=== PATIENT | female | born 1950 | race Caucasian/White ===

== ENCOUNTER 2017-07-24 13:15 | Outpatient (CLI) | payer MEDICARE, OTHER ==
[2017-07-24 13:32] LABS: BASOPHILS % (AUTO) 0.8 %; EOSINOPHILS # (AUTO) 0.1 10^3/uL (0.0-0.7); EOSINOPHILS % (AUTO) 2.3 %; HCT - HEMATOCRIT 42.2 % (37.0-47.0); HGB - HEMOGLOBIN 14.2 g/dL (12.0-16.0); LYMPHOCYTES # (AUTO) 1.5 10^3/uL (1.5-3.5); LYMPHOCYTES % (AUTO) 28.3 %; MEAN CORPUSCULAR HEMOGLOBIN 29.4 pg (27.0-31.0); MEAN CORPUSCULAR HGB CONC 33.5 g/dL (32.0-36.0); MEAN CORPUSCULAR VOLUME 87.5 fL (81.0-99.0); MONOCYTES # (AUTO) 0.4 10^3/uL (0.0-1.0); MONOCYTES % (AUTO) 7.6 %; NEUTROPHILS # (AUTO) 3.3 10^3/uL (1.5-6.6); NUCLEATED RED BLOOD CELLS AUTO 0.1 /100WBC; RED BLOOD COUNT 4.82 10^6/uL (4.20-5.40); UNCORRECTED WHITE BLOOD COUNT 5.4 x10^3/uL; WHITE BLOOD COUNT 5.4 x10^3/uL (4.8-10.8)
[2017-07-24 13:44] LABS: ALBUMIN/GLOBULIN RATIO 1.5 (1.0-2.2); BILIRUBIN,TOTAL 0.8 mg/dL (0.2-1.0); BUN - BLOOD UREA NITROGEN 17 mg/dL (6-20); CALCIUM 9.7 mg/dL (8.5-10.3); CARBON DIOXIDE - CO2 27 mmol/L (21-32); CHLORIDE 106 mmol/L (101-111); CHOLESTEROL 245 mg/dL; GFR - MDRD 55 (>89); GLUCOSE 86 mg/dL (70-100); HDL CHOLESTEROL 62 mg/dL; LDL/HDL RATIO 2.7 (<4.4); POTASSIUM 4.2 mmol/L (3.5-5.0); SODIUM 141 mmol/L (135-145); TOTAL PROTEIN 7.1 g/dL (6.7-8.2); TRIGLYCERIDES 86 mg/dL; VLDL CHOLESTEROL 17 mg/dL
[2017-07-24 13:47] LABS: PLATELET ESTIMATE, MANUAL NORMAL (130-450,000) (NORMAL); PLATELET MORPHOLOGY NORMAL APPEARANCE (NORMAL)
== END 2017-07-24 13:16 | disposition home or self-care (01) ==
LOC: LAB.R 13:15
PROVIDERS: ATTEND Internal Medicine
DX: E78.5 Hyperlipidemia, unspecified (principal); E03.9 Hypothyroidism, unspecified; Z79.899 Other long term (current) drug therapy
CPT/HCPCS: 80053; 80061; 84443; 85025

== ENCOUNTER 2017-08-13 09:09 | Outpatient (CLI) | payer MEDICARE, OTHER ==
--- NOTE | 2017-08-14 13:13 | Mammography Report ---
DIGITAL SCREENING MAMMOGRAM: 08/13/2017 CLINICAL INDICATION: A 66-year-old nulliparous patient with family history of breast cancer for scre ening. COMPARISON: 03/2015, 03/2012. TECHNIQUE: Routine CC and MLO projections were obtained of the breasts as well as bilateral laterall y exaggerated craniocaudal views. FINDINGS: The breasts again demonstrate scattered fibroglandular densities bilaterally. In the left upper central breast, there is a possible nodule. Further evaluation with spot compression views an d possible ultrasound is recommended. No mammographically suspicious findings are appreciated in the right breast. IMPRESSION: INCOMPLETE EXAMINATION. RECOMMENDATION: Additional evaluation of the left breast as above. BI-RADS category 0, incomplete. STANDARD QUALIFYING STATEMENTS 1. This examination was reviewed with the aid of Computer-Aided Detection (CAD). 2. A negative or benign imaging report should not delay biopsy if clinically suspicious findings are present. Consider surgical consultation if warranted. More than 5% of cancers are not identified by i maging. 3. Dense breasts may obscure an underlying neoplasm. JOB #: [id number] EXT JOB #:[id number]
== END 2017-08-13 09:10 | disposition home or self-care (01) ==
LOC: DI 09:09
PROVIDERS: ATTEND Internal Medicine
DX: Z12.31 Encounter for screening mammogram for malignant neoplasm of breast (principal); R92.8 Other abnormal and inconclusive findings on diagnostic imaging of breast; Z80.3 Family history of malignant neoplasm of breast
CPT/HCPCS: 77067

== ENCOUNTER 2017-08-23 13:27 | Outpatient (CLI) | payer MEDICARE, OTHER ==
--- NOTE | 2017-08-23 17:38 | Ultrasound Report ---
LEFT BREAST ULTRASOUND: 08/23/2017 CLINICAL INDICATION: Nodules on diagnostic mammogram. TECHNIQUE: Real-time scanning was performed with retail field representative static images obtained. Ultrasound of the left upper breast was performed. There are multiple simple cysts, with the largest , at the 2 o'clock position, measuring 8 x 9 x 6 mm. No sonographically suspicious findings are appr eciated. IMPRESSION: BENIGN FINDINGS. RECOMMENDATION: ROUTINE ANNUAL SCREENING UNLESS OTHERWISE CLINICALLY INDICATED. BIRADS CATEGORY: 2, BENIGN FINDINGS. JOB #: [id number] EXT JOB #:[id number]
--- NOTE | 2017-08-23 17:45 | Mammography Report ---
DIGITAL DIAGNOSTIC LEFT MAMMOGRAM: 08/23/2017 CLINICAL INDICATION: Nodularity on screening. TECHNIQUE: Left true lateral and spot compression views. COMPARISON: 08/13/2017, 03/19/2015, 04/11/2012. The left breast again demonstrates heterogeneously dense fibroglandular parenchyma. The density in q uestion, at the 12 o'clock position, persists on additional compression, as does a second nodular den sity at the 2 o'clock position of the left breast. Please refer to left breast ultrasound of the aby . IMPRESSION: BENIGN FINDINGS, WITH SIMPLE CYSTS ACCOUNTING FOR THE MAMMOGRAPHIC NODULARITY. RECOMMENDATION: ROUTINE ANNUAL SCREENING UNLESS OTHERWISE CLINICALLY INDICATED. BIRADS CATEGORY: 2, BENIGN FINDINGS. STANDARD QUALIFYING STATEMENTS 1. This examination was reviewed with the aid of Computed-Aided Detection (CAD). 2. A negative or benign imaging report should not delay biopsy if clinically suspicious findings are present. Consider surgical consultation if warranted. More than 5% of cancers are not identified b y imaging. 3. Dense breasts may obscure an underlying neoplasm. JOB #: [id number] EXT JOB #:[id number]
== END 2017-08-23 13:28 | disposition home or self-care (01) ==
LOC: DI 13:27
PROVIDERS: ATTEND Internal Medicine
DX: N60.12 Diffuse cystic mastopathy of left breast (principal)
CPT/HCPCS: 76642; G0206

== ENCOUNTER 2018-09-10 07:33 | Outpatient (CLI) | payer MEDICARE, OTHER ==
[2018-09-10 08:20] LABS: BASOPHILS % (AUTO) 0.7 %; EOSINOPHILS # (AUTO) 0.1 10^3/uL (0.0-0.7); EOSINOPHILS % (AUTO) 1.2 %; HGB - HEMOGLOBIN 14.7 g/dL (12.0-16.0); LYMPHOCYTES # (AUTO) 1.6 10^3/uL (1.5-3.5); LYMPHOCYTES % (AUTO) 26.1 %; MEAN CORPUSCULAR HEMOGLOBIN 29.6 pg (27.0-31.0); MEAN CORPUSCULAR HGB CONC 34.1 g/dL (32.0-36.0); MEAN PLATELET VOLUME 10.4 fL (7.9-10.8); MONOCYTES # (AUTO) 0.5 10^3/uL (0.0-1.0); NEUTROPHILS # (AUTO) 3.9 10^3/uL (1.5-6.6); PLT - PLATELET COUNT 187 10^3/uL (130-450); RED BLOOD COUNT 4.96 10^6/uL (4.20-5.40); RED CELL DISTRIBUTION WIDTH 12.8 % (12.0-15.0); WHITE BLOOD COUNT 6.2 x10^3/uL (4.8-10.8)
[2018-09-10 08:43] LABS: ALBUMIN 4.3 g/dL (3.2-5.5); ALBUMIN/GLOBULIN RATIO 1.7 (1.0-2.2); ALKALINE PHOSPHATASE 65 IU/L (42-121); ALT ALANINE AMINOTRANSFERASE 20 IU/L (10-60); AST ASPARTATE AMINOTRANSFERASE 21 IU/L (10-42); BILIRUBIN,TOTAL 0.7 mg/dL (0.2-1.0); BUN - BLOOD UREA NITROGEN 16 mg/dL (6-20); CALCIUM 9.6 mg/dL (8.5-10.3); CARBON DIOXIDE - CO2 28 mmol/L (21-32); CHLORIDE 105 mmol/L (101-111); CHOL/HDL RATIO 4.1 (<4.4); CHOLESTEROL 241 mg/dL; CREATININE 0.9 mg/dL (0.4-1.0); GFR - MDRD 62 (>89); GLUCOSE 106 mg/dL (70-100); HDL CHOLESTEROL 59 mg/dL; LDL CHOLESTEROL,CALCULATED 162 mg/dL; LDL/HDL RATIO 2.7 (<4.4); SODIUM 140 mmol/L (135-145); TOTAL PROTEIN 6.8 g/dL (6.7-8.2); VLDL CHOLESTEROL 20 mg/dL
[2018-09-10 08:46] LABS: PLATELET ESTIMATE, MANUAL NORMAL (130-450,000) (NORMAL); PLATELET MORPHOLOGY 1+ LARGE PLATELETS (NORMAL); RBC MORPHOLOGY (MULTIPLE) NORMAL APPEARANCE (NORMAL)
== END 2018-09-10 07:34 | disposition home or self-care (01) ==
LOC: LAB 07:33
PROVIDERS: ATTEND Internal Medicine
DX: Z79.899 Other long term (current) drug therapy (principal); E78.5 Hyperlipidemia, unspecified; E03.9 Hypothyroidism, unspecified
CPT/HCPCS: 36415; 80053; 80061; 83721; 84443; 85025

== ENCOUNTER 2018-09-24 09:56 | Outpatient (CLI) | payer MEDICARE, OTHER ==
--- NOTE | 2018-09-24 13:26 | XRAY Report ---
Reason: KNEE JOINT PAIN,RIGHT Procedure Date: 09/24/2018 Accession Number: [id number] / [id number] Procedure: XR - Knee 3 View RT CPT Code: FULL RESULT: EXAM: RIGHT KNEE RADIOGRAPHY EXAM DATE: 09/24/2018 10:15 AM. CLINICAL HISTORY: Knee joint pain, right. COMPARISON: XR KNEE 3 VIEW 04/11/2012 1:35 PM. TECHNIQUE: 3 views. FINDINGS: Bones: Normal. No fractures or bone lesions. Joints: Mild degenerative changes have occurred in the lateral weightbearing compartment since 2011. There is no joint effusion. Soft Tissues: Normal. No soft tissue swelling. IMPRESSION: Interval development of mild lateral weightbearing compartment degenerative changes. RADIA
== END 2018-09-24 09:57 | disposition home or self-care (01) ==
LOC: DI 09:56
PROVIDERS: ATTEND Internal Medicine
DX: M17.11 Unilateral primary osteoarthritis, right knee (principal)

== ENCOUNTER 2018-10-08 14:16 | Outpatient (CLI) | payer MEDICARE, OTHER ==
--- NOTE | 2018-10-09 08:44 | Mammography Report ---
Reason: ROUTINE MAMMO Procedure Date: 10/08/2018 Accession Number: [id number] / [id number] Procedure: SMILEY - Screening Mammo w/Fabrizio CPT Code: FULL RESULT: EXAM: Screening Mammo w/Fabrizio DATE: 10/08/2018 3:25 PM CLINICAL HISTORY: 68 year-old nulliparous female with 15 years of hormone replacement therapy and family history of breast cancer in sister at age 64. Patient presents for screening. TECHNIQUE: Bilateral CC and MLO views were obtained. COMPARISON: 08/23/2017, 08/13/2017, 03/19/2015, 03/22/2012. FINDINGS: The breasts demonstrate scattered fibroglandular densities bilaterally. Isodense well-circumscribed nodule in the left breast previously characterized as a benign cyst is redemonstrated, typically benign finding. No suspicious masses, clustered microcalcifications, or regions of architectural distortion are identified. IMPRESSION: Benign findings RECOMMENDATION: Routine annual screening unless otherwise clinically indicated. BIRADS CATEGORY 2: Benign findings STANDARD QUALIFYING STATEMENTS: 1. This examination was not reviewed with the aid of Computer-Aided Detection (CAD). 2. A negative or benign imaging report should not delay biopsy if clinically suspicious findings are present. Consider surgical consultation if warranted. More than 5% of cancers are not identified by imaging. 3. Dense breasts may obscure an underlying neoplasm. 4. This examination was reviewed with the aid of 3D breast imaging (tomosynthesis).
== END 2018-10-08 14:17 | disposition home or self-care (01) ==
LOC: DI 14:16
PROVIDERS: ATTEND Internal Medicine
DX: Z12.31 Encounter for screening mammogram for malignant neoplasm of breast (principal); Z80.3 Family history of malignant neoplasm of breast
CPT/HCPCS: 77063; 77067

== ENCOUNTER 2019-09-23 07:35 | Outpatient (CLI) | payer MEDICARE, OTHER ==
[2019-09-23 08:01] LABS: BASOPHILS % (AUTO) 0.7 %; EOSINOPHILS # (AUTO) 0.1 10^3/uL (0.0-0.7); EOSINOPHILS % (AUTO) 1.8 %; HGB - HEMOGLOBIN 14.3 g/dL (12.0-16.0); LYMPHOCYTES # (AUTO) 1.8 10^3/uL (1.5-3.5); MEAN CORPUSCULAR HEMOGLOBIN 29.5 pg (27.0-31.0); MEAN CORPUSCULAR HGB CONC 33.2 g/dL (32.0-36.0); MEAN PLATELET VOLUME 11.9 fL (7.9-10.8); MONOCYTES # (AUTO) 0.5 10^3/uL (0.0-1.0); NEUTROPHILS # (AUTO) 3.1 10^3/uL (1.5-6.6); NEUTROPHILS % (AUTO) 55.1 %; PLT - PLATELET COUNT 207 10^3/uL (130-450); RED BLOOD COUNT 4.84 10^6/uL (4.20-5.40); RED CELL DISTRIBUTION WIDTH 12.6 % (12.0-15.0); WHITE BLOOD COUNT 5.6 x10^3/uL (4.8-10.8)
[2019-09-23 08:22] LABS: ALBUMIN 4.2 g/dL (3.2-5.5); ALBUMIN/GLOBULIN RATIO 1.6 (1.0-2.2); ALKALINE PHOSPHATASE 59 IU/L (42-121); ALT ALANINE AMINOTRANSFERASE 23 IU/L (10-60); AST ASPARTATE AMINOTRANSFERASE 22 IU/L (10-42); BILIRUBIN,TOTAL 0.6 mg/dL (0.2-1.0); BUN - BLOOD UREA NITROGEN 15 mg/dL (6-20); CALCIUM 9.5 mg/dL (8.5-10.3); CARBON DIOXIDE - CO2 27 mmol/L (21-32); CHLORIDE 106 mmol/L (101-111); CHOL/HDL RATIO 3.5 (<4.4); CHOLESTEROL 218 mg/dL; CREATININE 0.8 mg/dL (0.4-1.0); GFR - MDRD 71 (>89); GLUCOSE 108 mg/dL (70-100); HDL CHOLESTEROL 62 mg/dL; LDL CHOLESTEROL,CALCULATED 144 mg/dL; LDL/HDL RATIO 2.3 (<4.4); SODIUM 144 mmol/L (135-145); TOTAL PROTEIN 6.8 g/dL (6.7-8.2); VLDL CHOLESTEROL 12 mg/dL
[2019-09-23 09:11] LABS: FREE T4 (FREE THYROXINE) 1.16 ng/dL (0.58-1.64)
== END 2019-09-23 07:36 | disposition home or self-care (01) ==
LOC: LAB 07:35
PROVIDERS: ATTEND Nurse Practitioner
DX: Z79.899 Other long term (current) drug therapy (principal); E78.5 Hyperlipidemia, unspecified; E03.9 Hypothyroidism, unspecified
CPT/HCPCS: 36415; 80053; 80061; 82306; 83721; 84439; 84443; 85025

== ENCOUNTER 2019-11-04 14:35 | Outpatient (CLI) | payer MEDICARE, OTHER ==
--- NOTE | 2019-11-05 11:09 | Mammography Report ---
Reason: ROUTINE MAMMO Procedure Date: 11/04/2019 Accession Number: [id number] / [id number] Procedure: SMILEY - Screening Mammo w/Fabrizio CPT Code: Final Report FULL RESULT: EXAM: Screening Mammo w/Fabrizio DATE: 11/04/2019 3:05 PM CLINICAL HISTORY: Routine screening, nulliparous patient. Sister with breast cancer TECHNIQUE: (B) - Bilateral CC and MLO views were obtained. COMPARISON: 10/08/2018, 08/13/2017, 03/19/2015, 04/11/2012 PARENCHYMAL PATTERN: (A) - The breasts demonstrate scattered fibroglandular densities bilaterally. FINDINGS: There has been no significant interval change. There are no suspicious masses, calcifications, or areas of distortion. IMPRESSION: Negative examination. BI-RADS category 1. RECOMMENDATION: (ANNUAL) - Recommend routine annual screening mammography. BI-RADS CATEGORY: (1) - Negative. STANDARD QUALIFYING STATEMENTS: 1. This examination was not reviewed with the aid of Computer-Aided Detection (CAD). 2. A negative or benign imaging report should not preclude biopsy if clinically suspicious findings are present. 3. Dense breasts may obscure an underlying neoplasm. 4. This examination was reviewed with the aid of 3D breast imaging (tomosynthesis).
== END 2019-11-04 14:36 | disposition home or self-care (01) ==
LOC: DI 14:35
DX: Z12.31 Encounter for screening mammogram for malignant neoplasm of breast (principal); Z80.3 Family history of malignant neoplasm of breast
CPT/HCPCS: 77063; 77067

== ENCOUNTER 2020-04-16 13:02 | Outpatient (CLI) | payer MEDICARE, OTHER ==
[2020-04-16 13:41] LABS: THYROID STIMULATING HORMONE 0.76 uIU/mL (0.34-5.60)
[2020-04-16 13:44] LABS: FREE T3 3.29 pg/mL (2.5-3.9)
[2020-04-16 13:45] LABS: FREE T4 (FREE THYROXINE) 0.68 ng/dL (0.58-1.64)
== END 2020-04-16 13:03 | disposition home or self-care (01) ==
LOC: LAB 13:02
PROVIDERS: ATTEND Nurse Practitioner
DX: E03.9 Hypothyroidism, unspecified (principal)
CPT/HCPCS: 36415; 84439; 84443; 84481

== ENCOUNTER 2020-11-09 09:19 | Outpatient (CLI) | payer MEDICARE, OTHER ==
[2020-11-09 09:43] LABS: BASOPHILS % (AUTO) 0.7 %; EOSINOPHILS # (AUTO) 0.1 10^3/uL (0.0-0.7); HGB - HEMOGLOBIN 14.1 g/dL (12.0-16.0); LYMPHOCYTES # (AUTO) 1.7 10^3/uL (1.5-3.5); MEAN CORPUSCULAR HEMOGLOBIN 30.1 pg (27.0-31.0); MEAN CORPUSCULAR HGB CONC 32.5 g/dL (32.0-36.0); MEAN CORPUSCULAR VOLUME 92.5 fL (81.0-99.0); MEAN PLATELET VOLUME 11.8 fL (7.9-10.8); MONOCYTES # (AUTO) 0.4 10^3/uL (0.0-1.0); MONOCYTES % (AUTO) 7.3 %; NEUTROPHILS # (AUTO) 3.5 10^3/uL (1.5-6.6); NEUTROPHILS % (AUTO) 61.5 %; PLT - PLATELET COUNT 191 10^3/uL (130-450); RED BLOOD COUNT 4.69 10^6/uL (4.20-5.40); RED CELL DISTRIBUTION WIDTH 13.2 % (12.0-15.0); WHITE BLOOD COUNT 5.8 x10^3/uL (4.8-10.8)
[2020-11-09 10:21] LABS: THYROID STIMULATING HORMONE 14.28 uIU/mL (0.34-5.60)
[2020-11-09 10:23] LABS: FREE T4 (FREE THYROXINE) 0.97 ng/dL (0.58-1.64)
[2020-11-09 14:40] LABS: ALBUMIN 4.1 g/dL (3.2-5.5); ALBUMIN/GLOBULIN RATIO 1.6 (1.0-2.2); ALKALINE PHOSPHATASE 63 IU/L (42-121); ALT ALANINE AMINOTRANSFERASE 28 IU/L (10-60); AST ASPARTATE AMINOTRANSFERASE 25 IU/L (10-42); BILIRUBIN,TOTAL 0.5 mg/dL (0.2-1.0); BUN - BLOOD UREA NITROGEN 16 mg/dL (6-20); CALCIUM 9.3 mg/dL (8.5-10.3); CARBON DIOXIDE - CO2 25 mmol/L (21-32); CHLORIDE 107 mmol/L (101-111); CHOLESTEROL 261 mg/dL; CREATININE 0.8 mg/dL (0.4-1.0); GLUCOSE 98 mg/dL (70-100); HDL CHOLESTEROL 66 mg/dL; LDL CHOLESTEROL,CALCULATED 178 mg/dL; LDL/HDL RATIO 2.7 (<4.4); SODIUM 141 mmol/L (135-145); TOTAL PROTEIN 6.7 g/dL (6.7-8.2); VLDL CHOLESTEROL 17 mg/dL
[2020-11-09 15:28] LABS: FREE T4 (FREE THYROXINE) 0.82 ng/dL (0.58-1.64)
== END 2020-11-09 09:20 | disposition home or self-care (01) ==
LOC: LAB 09:19
PROVIDERS: ATTEND Nurse Practitioner
DX: Z00.00 Encounter for general adult medical examination without abnormal findings (principal); E03.9 Hypothyroidism, unspecified; E78.5 Hyperlipidemia, unspecified; Z78.0 Asymptomatic menopausal state; Z79.899 Other long term (current) drug therapy
CPT/HCPCS: 36415; 80053; 80061; 82306; 83721; 84439; 84443; 84481; 85025

== ENCOUNTER 2020-12-23 15:03 | Outpatient (CLI) | payer MEDICARE, OTHER ==
--- NOTE | 2020-12-27 16:42 | Mammography Report ---
BILATERAL DIGITAL SCREENING MAMMOGRAM 3D/2D: 12/23/2020 CLINICAL: Routine screening. Comparison is made to exams dated: 11/04/2019 mammogram, 10/08/2018 mammogram, and 08/13/2017 mammogr am - [facility]. The tissue of both breasts is heterogeneously dense. This may low er the sensitivity of mammography. No significant masses, calcifications, or other findings are seen in either breast. There has been no significant interval change. IMPRESSION: NEGATIVE There is no mammographic evidence of malignancy. A 1 year screening mammogram is recommended. This exam was interpreted at Station ID: [id number]. NOTE: For mammograms, a report in lay terms will be sent to the patient. Approximately 15% of breast malignancies will not be visualized mammographically. In the management of a palpable breast mass, a negative mammogram must not discourage biopsy of a clinically suspicious lesion. Electronically Signed By: Pavan Maza M.D. ar/andresrad:12/24/2020 11:25:36 ACR BI-RADS Category 1: Negative 3341F PARENCHYMAL PATTERN: (D) - The breast(s) demonstrate(s) heterogeneously dense fibroglandular gerard ngo. BI-RADS CATEGORY: (1) - 1 RECOMMENDATION: (ANNUAL) - Recommend routine annual screening mammography. [id number] 1 year screening LATERALITY: (B)
== END 2020-12-23 15:04 | disposition home or self-care (01) ==
LOC: DI 15:03
DX: Z12.31 Encounter for screening mammogram for malignant neoplasm of breast (principal)

== ENCOUNTER 2021-03-03 08:02 | Day surgery (SDC) | payer MEDICARE, OTHER ==
[2021-03-03] MEDS ORDERED: LACTATED RINGERS 1,000 ML IV ONE (08:43)
[2021-03-03] MEDS ORDERED: MIDAZOLAM 2 MG/2 ML VIAL ONE ×3 (09:12→09:34)
[2021-03-03] MEDS ORDERED: fentaNYL 250 MCG/5 ML VIAL ONE (09:12)
[2021-03-03] MEDS ORDERED: LACTATED RINGERS 500 ML IV ONE (09:56)
[2021-03-03 11:01] VITALS: BP 114/45
== END 2021-03-03 08:03 | disposition home or self-care (01) ==
LOC: SDS 08:02
PROVIDERS: ATTEND Surgery
PROC: 0DBH8ZZ Excision of Cecum, Via Natural or Artificial Opening Endoscopic (ICD-10-PCS; principal; 2021-03-03 09:00)
DX: Z12.11 Encounter for screening for malignant neoplasm of colon (principal); D12.0 Benign neoplasm of cecum; K64.8 Other hemorrhoids; K64.4 Residual hemorrhoidal skin tags; K57.30 Diverticulosis of large intestine without perforation or abscess without bleeding; Q43.8 Other specified congenital malformations of intestine; E03.9 Hypothyroidism, unspecified
CPT/HCPCS: 45380; J3010; J7120

== ENCOUNTER 2021-09-09 11:19 | Outpatient (CLI) | payer MEDICARE, OTHER ==
[2021-09-09 12:38] LABS: CHOL/HDL RATIO 3.9 (<4.4); CHOLESTEROL 260 mg/dL; HDL CHOLESTEROL 67 mg/dL; LDL CHOLESTEROL,CALCULATED 178 mg/dL; LDL/HDL RATIO 2.7 (<4.4); TRIGLYCERIDES 77 mg/dL; VLDL CHOLESTEROL 15 mg/dL
[2021-09-09 12:50] LABS: THYROID STIMULATING HORMONE 7.4 uIU/mL (0.34-5.60)
[2021-09-09 12:52] LABS: FREE T3 3.53 pg/mL (2.5-3.9)
[2021-09-09 12:53] LABS: FREE T4 (FREE THYROXINE) 0.93 ng/dL (0.58-1.64)
== END 2021-09-09 11:20 | disposition home or self-care (01) ==
LOC: LAB 11:19
PROVIDERS: ATTEND Family Medicine
DX: E78.5 Hyperlipidemia, unspecified (principal); E03.9 Hypothyroidism, unspecified
CPT/HCPCS: 36415; 80061; 83721; 84439; 84443; 84481

== ENCOUNTER 2021-09-14 14:18 | Outpatient (CLI) | payer MEDICARE, OTHER ==
--- NOTE | 2021-09-14 15:28 | XRAY Report ---
PROCEDURE: Knee 3 View LT INDICATIONS: BURSITIS,KNEE TECHNIQUE: 3 views of the left knee(s) were acquired. COMPARISON: Reference is made to the left knee radiograph report dated April 11, 2012. FINDINGS: BONES/JOINT: No acute, displaced fracture or dislocation. Superior patellar enthesophyte. No substan tial suprapatellar joint effusion. Mild to moderate medial compartment joint space loss. Mild tricomp artment osteophytosis. SOFT TISSUES: No significant abnormality. IMPRESSION: 1.No acute osseous abnormality. Reviewed by: Jason Riddle MD on 09/14/2021 3:27 PM PDT Approved by: Jason Riddle MD on 09/14/2021 3:27 PM PDT Station ID: [id number]
== END 2021-09-14 14:19 | disposition home or self-care (01) ==
LOC: DI 14:18
PROVIDERS: ATTEND Family Medicine
DX: M70.50 Other bursitis of knee, unspecified knee (principal)

== ENCOUNTER 2021-10-18 10:15 | Outpatient (CLI) | payer MEDICARE, OTHER ==
--- NOTE | 2021-10-18 17:08 | XRAY Report ---
PROCEDURE: Knee 4 View LT INDICATIONS: L KNEE BURSITIS TECHNIQUE: 4 views of the left knee(s) were acquired. COMPARISON: X-ray left knee, 09/14/2021. FINDINGS: Bones: No fractures or dislocations. No suspicious bony lesions. There is moderate osteophytic javier nges with joint space narrowing and periarticular osteophyte formation, most pronounced in the medial femorotibial compartment. Note is made of moderate right knee joint degeneration involving the later al compartment. Soft tissues: Small joint effusion. Focal calcification at the patellar insertion of quadriceps tendo n compatible with tendinitis. IMPRESSION: 1. Moderate osteoarthritis. 2. Small knee joint effusion. 3. Quadriceps calcific tendinitis. Reviewed by: Caleb Bliss MD on 10/18/2021 5:06 PM PST Approved by: Caleb Bliss MD on 10/18/2021 5:06 PM PST Station ID: [id number]
== END 2021-10-18 23:59 | disposition home or self-care (01) ==
LOC: DI.N 10:15
PROVIDERS: ATTEND Physician Assistant
DX: M17.12 Unilateral primary osteoarthritis, left knee (principal); M25.462 Effusion, left knee; M65.262 Calcific tendinitis, left lower leg

== ENCOUNTER 2022-02-07 09:27 | Outpatient (CLI) | payer MEDICARE, OTHER ==
[2022-02-07 10:23] LABS: THYROID STIMULATING HORMONE 12.2 uIU/mL (0.34-5.60)
[2022-02-07 10:24] LABS: FREE T3 3.05 pg/mL (2.5-3.9)
[2022-02-07 10:25] LABS: FREE T4 (FREE THYROXINE) 0.9 ng/dL (0.58-1.64)
== END 2022-02-07 09:28 | disposition home or self-care (01) ==
LOC: LAB 09:27
PROVIDERS: ATTEND Family Medicine
DX: E03.9 Hypothyroidism, unspecified (principal)
CPT/HCPCS: 36415; 84439; 84443; 84481

== ENCOUNTER 2022-03-02 10:37 | Outpatient (CLI) | payer MEDICARE, OTHER ==
--- NOTE | 2022-03-06 16:38 | Mammography Report ---
BILATERAL DIGITAL SCREENING MAMMOGRAM 3D/2D: 03/02/2022 CLINICAL: Family history of breast cancer. Routine screening. Comparison is made to exams dated: 12/23/2020 mammogram, 11/04/2019 mammogram, 10/08/2018 mammogram, 1 mammogram, 08/23/2017 ultrasound, and 08/13/2017 mammogram - [facility]. Th e tissue of both breasts is heterogeneously dense. This may lower the sensitivity of mammography. There is a focal asymmetry in the left breast at 2 o'clock anterior depth. This is more prominent. There is possible developing architectural distortion associated with the focal asymmetry. Small left breast cysts area again seen on tomosynthesis views. No other significant masses, calcifications, or other findings are seen in either breast. IMPRESSION: INCOMPLETE: NEEDS ADDITIONAL IMAGING EVALUATION The focal asymmetry in the left breast is indeterminate. Additional views with possible ultrasound are recommended. This exam was interpreted at Station ID: [id number]. NOTE: For mammograms, a report in lay terms will be sent to the patient. Approximately 15% of breast malignancies will not be visualized mammographically. In the management of a palpable breast mass, a negative mammogram must not discourage biopsy of a clinically suspicious lesion. Electronically Signed By: Alfredo Theodore M.D. slc/:03/02/2022 12:52:14 ACR BI-RADS Category 0: Incomplete 3340F PARENCHYMAL PATTERN: (D) - The breast(s) demonstrate(s) heterogeneously dense fibroglandular gerard ngo. BI-RADS CATEGORY: (0) - 0 Mammo and [place] [id number] Immediate follow-up LATERALITY: (B)
== END 2022-03-02 10:38 | disposition home or self-care (01) ==
LOC: DI.N 10:37
DX: Z12.31 Encounter for screening mammogram for malignant neoplasm of breast (principal); Z80.3 Family history of malignant neoplasm of breast; R92.8 Other abnormal and inconclusive findings on diagnostic imaging of breast

== ENCOUNTER 2022-05-11 08:49 | Outpatient (CLI) | payer MEDICARE, OTHER ==
[2022-05-11 09:01] LABS: BASOPHILS # (AUTO) 0.1 10^3/uL (0.0-0.1); BASOPHILS % (AUTO) 0.6 %; EOSINOPHILS # (AUTO) 0.1 10^3/uL (0.0-0.7); HCT - HEMATOCRIT 44.3 % (37.0-47.0); HGB - HEMOGLOBIN 14.6 g/dL (12.0-16.0); LYMPHOCYTES % (AUTO) 25.7 %; MEAN CORPUSCULAR HEMOGLOBIN 29.7 pg (27.0-31.0); MEAN PLATELET VOLUME 11.6 fL (7.9-10.8); MONOCYTES # (AUTO) 0.6 10^3/uL (0.0-1.0); MONOCYTES % (AUTO) 7.4 %; NEUTROPHILS % (AUTO) 64.5 %; PLT - PLATELET COUNT 224 10^3/uL (130-450); RED BLOOD COUNT 4.92 10^6/uL (4.20-5.40); RED CELL DISTRIBUTION WIDTH 12.8 % (12.0-15.0); WHITE BLOOD COUNT 7.8 x10^3/uL (4.8-10.8)
[2022-05-11 09:03] LABS: BILIRUBIN,URINE NEGATIVE (NEGATIVE); GLUCOSE, URINE (UA) NEGATIVE (NEGATIVE); KETONES,URINE (UA) NEGATIVE (NEGATIVE); LEUKOCYTE ESTERASE, URINE NEGATIVE (NEGATIVE); NITRITE,URINE NEGATIVE (NEGATIVE); OCCULT BLOOD,URINE NEGATIVE (NEGATIVE); PROTEIN,URINE NEGATIVE (NEGATIVE); UROBILINOGEN,URINE 0.2 (NORMAL) E.U./dL (NORMAL)
[2022-05-11 09:07] LABS: CLARITY,URINE CLEAR (CLEAR)
[2022-05-11 09:10] LABS: CALCIUM 9.3 mg/dL (8.5-10.3); CREATININE 0.9 mg/dL (0.4-1.0); POTASSIUM 4.1 mmol/L (3.5-5.0)
[2022-05-11 09:34] LABS: BACTERIA,URINE Few /HPF (None Seen); RBC,URINE 0-5 /HPF (0-5); SQUAMOUS EPITHELIAL CELL,UR FEW Squamous (<= Few); WBC,URINE 0-3 /HPF (0-5)
[2022-05-11 10:46] LABS: ESTIMATED AVERAGE GLUCOSE 111 mg/dL (70-100); HEMOGLOBIN A1c% 5.5 % (4.27-6.07)
== END 2022-05-11 08:50 | disposition home or self-care (01) ==
LOC: LAB 08:49
PROVIDERS: ATTEND Orthopaedic Surgery
DX: Z01.818 Encounter for other preprocedural examination (principal); R73.9 Hyperglycemia, unspecified; N39.0 Urinary tract infection, site not specified
CPT/HCPCS: 36415; 80048; 81001; 83036; 85025; 87086; 93005

== ENCOUNTER 2022-10-24 08:41 | Outpatient (CLI) | payer MEDICARE, OTHER ==
[2022-10-24 08:55] LABS: BASOPHILS % (AUTO) 0.7 %; EOSINOPHILS # (AUTO) 0.2 10^3/uL (0.0-0.7); EOSINOPHILS % (AUTO) 3.8 %; HCT - HEMATOCRIT 43.6 % (37.0-47.0); LYMPHOCYTES # (AUTO) 1.3 10^3/uL (1.5-3.5); LYMPHOCYTES % (AUTO) 23.4 %; MEAN CORPUSCULAR HEMOGLOBIN 28.6 pg (27.0-31.0); MEAN CORPUSCULAR HGB CONC 32.1 g/dL (32.0-36.0); MEAN CORPUSCULAR VOLUME 89.2 fL (81.0-99.0); MEAN PLATELET VOLUME 11.7 fL (7.9-10.8); MONOCYTES # (AUTO) 0.5 10^3/uL (0.0-1.0); MONOCYTES % (AUTO) 9.7 %; NEUTROPHILS # (AUTO) 3.4 10^3/uL (1.5-6.6); PLT - PLATELET COUNT 218 10^3/uL (130-450); RED BLOOD COUNT 4.89 10^6/uL (4.20-5.40); RED CELL DISTRIBUTION WIDTH 13.4 % (12.0-15.0); WHITE BLOOD COUNT 5.5 x10^3/uL (4.8-10.8)
[2022-10-24 09:15] LABS: ALBUMIN 4.1 g/dL (3.2-5.5); ALBUMIN/GLOBULIN RATIO 1.5 (1.0-2.2); ALKALINE PHOSPHATASE 71 IU/L (42-121); ALT ALANINE AMINOTRANSFERASE 21 IU/L (10-60); AST ASPARTATE AMINOTRANSFERASE 21 IU/L (10-42); BILIRUBIN,TOTAL 0.7 mg/dL (0.2-1.0); BUN - BLOOD UREA NITROGEN 18 mg/dL (6-20); CALCIUM 9.4 mg/dL (8.5-10.3); CARBON DIOXIDE - CO2 26 mmol/L (21-32); CHLORIDE 103 mmol/L (101-111); CHOL/HDL RATIO 4.3 (<4.4); CHOLESTEROL 272 mg/dL; CREATININE 0.9 mg/dL (0.4-1.0); GFR - MDRD 62 (>89); GLUCOSE 104 mg/dL (70-100); HDL CHOLESTEROL 63 mg/dL; LDL CHOLESTEROL,CALCULATED 194 mg/dL; LDL/HDL RATIO 3.1 (<4.4); POTASSIUM 4.3 mmol/L (3.5-5.0); SODIUM 139 mmol/L (135-145); TOTAL PROTEIN 6.9 g/dL (6.7-8.2); TRIGLYCERIDES 74 mg/dL; VLDL CHOLESTEROL 15 mg/dL
[2022-10-24 09:27] LABS: THYROID STIMULATING HORMONE 9.78 uIU/mL (0.34-5.60)
[2022-10-24 09:28] LABS: FREE T3 3.1 pg/mL (2.5-3.9)
[2022-10-24 09:29] LABS: FREE T4 (FREE THYROXINE) 0.94 ng/dL (0.58-1.64)
== END 2022-10-24 08:42 | disposition home or self-care (01) ==
LOC: LAB 08:41
PROVIDERS: ATTEND Family Medicine
DX: E78.5 Hyperlipidemia, unspecified (principal); M17.12 Unilateral primary osteoarthritis, left knee; E03.9 Hypothyroidism, unspecified
CPT/HCPCS: 36415; 80053; 80061; 83721; 84439; 84443; 84481; 85025

== ENCOUNTER 2023-04-20 08:13 | Outpatient (CLI) | payer MEDICARE, OTHER ==
[2023-04-20 09:40] LABS: CHOL/HDL RATIO 3.7 (<4.4); CHOLESTEROL 254 mg/dL; HDL CHOLESTEROL 68 mg/dL; LDL CHOLESTEROL,CALCULATED 174 mg/dL; LDL/HDL RATIO 2.6 (<4.4); TRIGLYCERIDES 61 mg/dL; VLDL CHOLESTEROL 12 mg/dL
[2023-04-20 09:49] LABS: THYROID STIMULATING HORMONE 7.91 uIU/mL (0.34-5.60)
[2023-04-20 11:08] LABS: FREE T4 (FREE THYROXINE) 0.98 ng/dL (0.58-1.64)
== END 2023-04-20 08:14 | disposition home or self-care (01) ==
LOC: LAB 08:13
PROVIDERS: ATTEND Family Medicine
DX: E78.5 Hyperlipidemia, unspecified (principal); E03.9 Hypothyroidism, unspecified
CPT/HCPCS: 36415; 80061; 83721; 84439; 84443

== ENCOUNTER 2023-05-01 10:09 | Outpatient (CLI) | payer MEDICARE, OTHER ==
--- NOTE | 2023-05-01 12:43 | Mammography Report ---
BILATERAL DIGITAL DIAGNOSTIC MAMMOGRAM 3D/2D WITH SPOT COMPRESSION: 05/01/2023 CLINICAL: Patient returns today to evaluate a focal asymmetry in the left breast. Due for bilateral i maging. Comparison is made to exams dated: 03/02/2022 mammogram, 12/23/2020 mammogram, 11/04/2019 mammogram, mammogram, 08/23/2017 mammogram, and 08/13/2017 mammogram - [facility]. Both breasts are heterogeneously dense, which may obscure small masses (category c / 51-75% glandular tissue). There is a focal asymmetry in the left breast at 2 o'clock anterior depth. This is not seen in addit ional views. No other significant masses, calcifications, or other findings are seen in either breast. IMPRESSION: BENIGN There is no mammographic evidence of malignancy. The focal asymmetry in the left breast is consistent with fibroglandular tissue and is benign. A 1 year screening mammogram is recommended. Exam findings were conveyed to the patient. Based on the Tyrer Cuzick model (a risk assessment model) the patients lifetime risk is 14.4% and he r 10 year risk is 10.9%. According to the ACR, ACS, and NCCN guidelines, an annual breast MRI exam al galo with mammogram is recommended if the patients lifetime risk is 20% or greater. This exam was interpreted at Station ID: [id number]. NOTE: For mammograms, a report in lay terms will be sent to the patient. Approximately 15% of breast malignancies will not be visualized mammographically. In the management of a palpable breast mass, a negative mammogram must not discourage biopsy of a clinically suspicious lesion. Electronically Signed By: Alfredo Theodore M.D. slc/:05/01/2023 11:32:08 ACR BI-RADS Category 2: Benign Finding(s) 3342F PARENCHYMAL PATTERN: (D) - The breast(s) demonstrate(s) heterogeneously dense fibroglandular parenchy ma. BI-RADS CATEGORY: (2) - 2 Mammogram [id number] 1 year screening LATERALITY: (B)
== END 2023-05-01 10:10 | disposition home or self-care (01) ==
LOC: DI 10:09
PROVIDERS: ATTEND Family Medicine
DX: R92.8 Other abnormal and inconclusive findings on diagnostic imaging of breast (principal)

== ENCOUNTER 2023-10-16 08:35 | Outpatient (CLI) | payer MEDICARE, OTHER ==
[2023-10-16 08:55] LABS: BASOPHILS % (AUTO) 0.7 %; EOSINOPHILS # (AUTO) 0.1 10^3/uL (0.0-0.7); EOSINOPHILS % (AUTO) 2.1 %; HGB - HEMOGLOBIN 14.2 g/dL (12.0-16.0); LYMPHOCYTES # (AUTO) 1.7 10^3/uL (1.5-3.5); LYMPHOCYTES % (AUTO) 30.2 %; MEAN CORPUSCULAR HEMOGLOBIN 29.4 pg (27.0-31.0); MEAN CORPUSCULAR HGB CONC 32.3 g/dL (32.0-36.0); MEAN CORPUSCULAR VOLUME 91.1 fL (81.0-99.0); MEAN PLATELET VOLUME 11.8 fL (7.9-10.8); MONOCYTES # (AUTO) 0.5 10^3/uL (0.0-1.0); MONOCYTES % (AUTO) 9.4 %; NEUTROPHILS # (AUTO) 3.2 10^3/uL (1.5-6.6); NEUTROPHILS % (AUTO) 57.2 %; PLT - PLATELET COUNT 194 10^3/uL (130-450); RED BLOOD COUNT 4.83 10^6/uL (4.20-5.40); RED CELL DISTRIBUTION WIDTH 13.3 % (12.0-15.0); WHITE BLOOD COUNT 5.6 x10^3/uL (4.8-10.8)
[2023-10-16 09:15] LABS: ALBUMIN 4.4 g/dL (3.2-5.5); ALBUMIN/GLOBULIN RATIO 2.2 (1.0-2.2); ALKALINE PHOSPHATASE 62 IU/L (42-121); ALT ALANINE AMINOTRANSFERASE 17 IU/L (10-60); AST ASPARTATE AMINOTRANSFERASE 18 IU/L (10-42); BILIRUBIN,TOTAL 0.5 mg/dL (0.2-1.0); BUN - BLOOD UREA NITROGEN 17 mg/dL (6-20); CALCIUM 9.8 mg/dL (8.5-10.3); CARBON DIOXIDE - CO2 29 mmol/L (21-32); CHLORIDE 108 mmol/L (101-111); CHOL/HDL RATIO 3.6 (<4.4); CHOLESTEROL 227 mg/dL; CREATININE 0.9 mg/dL (0.6-1.3); GFR - MDRD 61 (>89); GLUCOSE 96 mg/dL (74-104); HDL CHOLESTEROL 63 mg/dL; LDL CHOLESTEROL,CALCULATED 147 mg/dL; LDL/HDL RATIO 2.3 (<4.4); POTASSIUM 4.2 mmol/L (3.5-4.5); SODIUM 142 mmol/L (135-145); TOTAL PROTEIN 6.4 g/dL (6.4-8.9); TRIGLYCERIDES 87 mg/dL (48-352); VLDL CHOLESTEROL 17 mg/dL
[2023-10-16 09:25] LABS: THYROID STIMULATING HORMONE 7.57 uIU/mL (0.34-5.60)
== END 2023-10-16 08:36 | disposition home or self-care (01) ==
LOC: LAB 08:35
PROVIDERS: ATTEND Family Medicine
DX: E78.5 Hyperlipidemia, unspecified (principal); L84 Corns and callosities; Z96.652 Presence of left artificial knee joint; E03.9 Hypothyroidism, unspecified
CPT/HCPCS: 36415; 80053; 80061; 83721; 84439; 84443; 84481; 85025

== ENCOUNTER 2024-04-20 09:01 | Outpatient (CLI) | payer MEDICARE, OTHER ==
[2024-04-20 09:47] LABS: THYROID STIMULATING HORMONE 4.7 uIU/mL (0.34-5.60)
== END 2024-04-20 09:02 | disposition home or self-care (01) ==
LOC: LAB 09:01
PROVIDERS: ATTEND Family Medicine
DX: E03.9 Hypothyroidism, unspecified (principal)
CPT/HCPCS: 36415; 84439; 84443; 84481